=== PATIENT | male | born 1980 | race Caucasian/White ===

== ENCOUNTER 2021-11-24 22:04 | Emergency (ER) | payer MEDICAID ==
[~2021-11-24] VITALS: Ht 180.3 cm; Wt 91.0 kg
[2021-11-25 00:05] LABS: BASOPHILS % 0.8 % (0.0-2.0); EOSINOPHILS % 1.8 % (0.0-5.0); HEMATOCRIT. 45.7 % (42.0-52.0); LYMPHOCYTES % 18.3 % (20.0-50.0); MEAN CORPUSCULAR HEMOGLOBIN 29.7 pg (28.0-32.0); MEAN CORPUSCULAR VOLUME 84.8 fL (80.0-94.0); MEAN PLATELET VOLUME 8.5 fl (7.4-10.4); MONOCYTES % 4.4 % (2.0-8.0); NEUTROPHILS % 74.7 % (40.0-76.0); PLATELET 247 x1000/uL (130-400); RED BLOOD CELL COUNT 5.39 mill/uL (4.7-6.1); RED CELL DISTRIBUTION WIDTH 13.9 % (11.6-14.6)
[2021-11-25 00:07] LABS: CHLORIDE 105 mEq/L (98-107)
[2021-11-25 00:11] LABS: ETHANOL BLOOD < 10 mg/dL
[2021-11-25] MEDS ORDERED: ONDA4TAB5 MT (02:25)
[2021-11-25 03:31] VITALS: BP 152/77
== END 2021-11-25 03:31 | disposition home or self-care (01) ==
LOC: ER 22:04
DX: R42 Dizziness and giddiness (principal); R11.2 Nausea with vomiting, unspecified; F32.9 Major depressive disorder, single episode, unspecified
CPT/HCPCS: 36415; 80053; 80320; 85025; 93005; 99284; G0480